=== PATIENT | female | born 1980 | race Caucasian/White ===

== ENCOUNTER 2018-04-01 21:59 | Inpatient (IN) | payer MEDICARE, OTHER ==
--- NOTE | 2018-04-01 22:25 | ED PDOC ---
Arrival/HPI - General Historian: Patient - History of Present Illness Time/Duration: > month Symptom Onset: Gradual Symptom Course: Unchanged Activities at Onset: Light Context: Home <Jeison Nguyen - Last Filed: 04/02/18 01:25> <Miller Rodriguez - Last Filed: 04/02/18 05:28> - General Time Seen by Provider: 04/01/18 22:05 - History of Present Illness Narrative History of Present Illness (Text): 04/01/18 22:24 37 year old female, no significant past medical history, psychiatric history includes schizophrenia, no known drug allergies, who presents to the Emergency department brought in by family complaining of psychotic features. Patient states she feels constantly as if people are out to get her for the past 2-3 months. Family states patient has not followed-up with her psychiatrist. Patient denies any homicidal ideation, suicidal ideation, auditory/visual hallucinations, or any other complaints. (Jeison Nguyen) Past Medical History - Provider Review Nursing Documentation Reviewed: Yes - Infectious Disease Hx of Infectious Diseases: None - Cardiac Hx Hypertension: Yes - Psychiatric Hx Anxiety: Yes Hx Depression: Yes Hx Schizophrenia: Yes Hx Substance Use: No - Surgical History Hx Section: Yes - Anesthesia Hx Anesthesia: Yes Hx Anesthesia Reactions: No <Jeison Nguyen - Last Filed: 04/02/18 01:25> Family/Social History - Physician Review Nursing Documentation Reviewed: Yes Family/Social History: Unknown Family HX Smoking Status: Current Some Days Smoker Hx Alcohol Use: Yes Hx Substance Use: No <Jeison Nguyen - Last Filed: 04/02/18 01:25> Allergies/Home Meds <Jeison Nguyen - Last Filed: 04/02/18 01:25> <Miller Rodriguez - Last Filed: 04/02/18 05:28> Allergies/Adverse Reactions: Allergies No Known Allergies Allergy (Verified 04/01/18 22:39) Home Medications: Home Meds Medication Instructions Recorded Confirmed Unobtainable 04/01/18 04/01/18 Review of Systems - Physician Review All systems were reviewed & negative as marked: Yes - Review of Systems Constitutional: absent: Fatigue, Fevers Respiratory: absent: SOB, Cough, Sputum, Wheezing Cardiovascular: absent: Chest Pain Gastrointestinal: absent: Abdominal Pain, Nausea, Vomiting Neurological: absent: Headache Psychiatric: Other (+psychotic features). absent: Depression, Suicidal Ideation <Jeison Nguyen - Last Filed: 04/02/18 01:25> Physical Exam Vital Signs Reviewed: Yes Temperature: Afebrile Blood Pressure: Normal Pulse: Regular Respiratory Rate: Normal Appearance: Positive for: Well-Appearing, Non-Toxic, Comfortable Pain Distress: None Mental Status: Positive for: Alert and Oriented X 3 - Systems Exam Head: Present: Atraumatic, Normocephalic Pupils: Present: PERRL Extroacular Muscles: Present: EOMI Conjunctiva: Present: Normal Mouth: Present: Moist Mucous Membranes Neck: Present: Normal Range of Motion Respiratory/Chest: Present: Clear to Auscultation, Good Air Exchange. No: Respiratory Distress, Accessory Muscle Use Cardiovascular: Present: Regular Rate and Rhythm, Normal S1, S2. No: Murmurs Abdomen: No: Tenderness, Distention, Peritoneal Signs Back: Present: Normal Inspection Upper Extremity: Present: Normal Inspection. No: Cyanosis, Edema Lower Extremity: Present: Normal Inspection. No: Edema Neurological: Present: GCS=15, CN II-XII Intact, Speech Normal Skin: Present: Warm, Dry, Normal Color. No: Rashes Psychiatric: Present: Alert, Oriented x 3, Normal Insight, Normal Concentration <Jeison Nguyen - Last Filed: 04/02/18 01:25> Vital Signs Temp Pulse Resp BP Pulse Ox 04/02/18 04:34 98.2 F 122 H 18 144/94 H 99 04/01/18 22:33 98.1 F 87 18 131/74 97 Medical Decision Making - EKG Interpretation Interpreted by ED Physician: Yes Type: 12 lead EKG Comparison: No previous EKG avail. <Jeison Nguyen - Last Filed: 04/02/18 01:25> <Miller Rodriguez - Last Filed: 04/02/18 05:28> ED Course and Treatment: 04/01/18 22:24 Impression: 37 year old female brought in by family for psychotic features. Plan: -- EKG -- Chest X-ray -- Labs, POC -- Urinalysis, urine drug screen -- PES evaluation -- Reassess and disposition 04/01/18 23:48 -EKG: NSR @ 92 BPM, no ST elevation or depression, T wave inversion on lead III/ V3 with no cardiopulmonary complaints -Chest xray show no active disease -Labs are non-significant -UA show +UTI -UDS show no acute findings -Pt. is medically clear and stable for psychiatric evaluation at this time. 04/02/18 01:25 -Pending PES evaluation, case sign off to Dr. Rodriguez for follow up and dispo (Jeison Nguyen) 04/02/18 04:43 Pt seen and evaluated by PES screener Jia, who discussed case with psychiatrist supervisor contact and service clerks, Dr. Bianchi. Requesting [facility] screen. [facility] screeners will come in during next shift. 04/02/18 07:[address] Rose, pending [facility] PES screen and disposition. (Miller Rodriguez) - Lab Interpretations Lab Results: 04/01/18 22:45 04/01/18 22:45 Lab Results 04/01/18 22:50: Urine Opiates Screen Negative, Urine Methadone Screen Negative, Ur Barbiturates Screen Negative, Ur Phencyclidine Scrn Negative, Ur Amphetamines Screen Negative, U Benzodiazepines Scrn Negative, U Oth Cocaine Metabols Negative, U Cannabinoids Screen Negative 04/01/18 22:50: Urine Color Straw, Urine Appearance Clear, Urine pH 7.0, Ur Specific [place] <= 1.005, Urine Protein Negative, Urine Glucose (UA) Negative, Urine Ketones Negative, Urine Blood Trace-lysed H, Urine Nitrate Negative, Urine Bilirubin Negative, Urine Urobilinogen 0.2, Ur Leukocyte Esterase Moderate H, Urine RBC 0 - 2, Urine WBC 2 - 5, Ur Epithelial Cells 1 - 3, Urine Other Trichomonas 04/01/18 22:45: WBC 13.9 H D, RBC 4.04, Hgb 11.5 L, Hct 34.3 L, MCV 84.9, MCH 28.5, MCHC 33.5, RDW 17.0 H, Plt Count 452 H, MPV 9.0, Gran % 77.2 H, Lymph % ( Auto) 17.6 L, [place] % (Auto) 5.0, Eos % (Auto) 0.1 L, Baso % (Auto) 0.1, Gran # 10.72 H, Lymph # (Auto) 2.4, [place] # (Auto) 0.7 H, Eos # (Auto) 0.0, Baso # (Auto ) 0.01 04/01/18 22:45: Salicylates < 1 L, Acetaminophen < 10.0 L 04/01/18 22:45: Sodium 145, Potassium 3.7, Chloride 107, Carbon Dioxide 23, Anion Gap 19, BUN 4 L, Creatinine 0.5 L, Est GFR ( Amer) > 60, Est GFR ( Non-Af Amer) > 60, Random Glucose 117 H, Calcium 10.1, Total Bilirubin 0.2, AST 25, ALT 22, Alkaline Phosphatase 78, Total Protein 7.5, Albumin 4.4, Globulin 3.1, Albumin/Globulin Ratio 1.4 - RAD Interpretation Radiology Orders: 04/01/18 22:37 CHEST PORTABLE [RAD] Stat - EKG Interpretation EKG Interpretation (Text): 04/01/18 23:08 -EKG: NSR @ 92 BPM, no ST elevation or depression, T wave inversion on lead III/ V3 with no cardiopulmonary complaints (Jeison Nguyen) - Medication Orders Current Medication Orders: Discontinued Medications Alprazolam (Xanax) 0.5 mg PO ONCE ONE Stop: 04/02/18 04:22 Last Admin: 04/02/18 04:28 Dose: 0.5 mg Nitrofurantoin Macrocrystals (Macrobid) 100 mg PO STAT STA PRN Reason: Protocol Stop: 04/01/18 23:37 Last Admin: 04/02/18 00:04 Dose: 100 mg - PA / SECONDARY SOCIAL STUDIES TEACHER / Resident Statement RICARDO has reviewed & agrees with the documentation as recorded. - Scribe Statement The provider has reviewed the documentation as recorded by the Scribe <Jeison Nguyen - Last Filed: 04/02/18 01:25> - PA / SECONDARY SOCIAL STUDIES TEACHER / Resident Statement RICARDO has reviewed & agrees with the documentation as recorded. RICARDO has examined the patient and agrees with the treatment plan. <Miller Rodriguez - Last Filed: 04/02/18 05:28> - Scribe Statement Enid Gonzales All medical record entries made by the Scribe were at my direction and personally dictated by me. I have reviewed the chart and agree that the record accurately reflects my personal performance of the history, physical exam, medical decision making, and the department course for this patient. I have also personally directed, reviewed, and agree with the discharge instructions and disposition. (Jeison Nguyen) Disposition/Present on Arrival - Present on Arrival Any Indicators Present on Arrival: No History of DVT/PE: No History of Uncontrolled Diabetes: No Urinary Catheter: No History of Decub. Ulcer: No History Surgical Site Infection Following: None - Disposition Have Diagnosis and Disposition been Completed?: Yes Disposition Time: 23:08 <Jeison Nguyen - Last Filed: 04/02/18 01:25> - Present on Arrival Any Indicators Present on Arrival: No - Disposition Have Diagnosis and Disposition been Completed?: No Disposition Time: 07:00 <Miller Rodriguez - Last Filed: 04/02/18 05:28> - Disposition Diagnosis: UTI (urinary tract infection), Schizophrenia Patient Problems: Current Active Problems Problem Status Onset UTI (urinary tract infection) Acute Condition: STABLE Referrals: Kofi Butler, [Primary Care Provider] - Follow up with primary
[2018-04-01 22:33] VITALS: BMI 25.8
[2018-04-01 23:21] LABS: URINE BILIRUBIN NEGATIVE (NEGATIVE); URINE BLOOD TRACE-LYSED (NEGATIVE); URINE GLUCOSE (UA) NEGATIVE (NEGATIVE); URINE LEUKOCYTE ESTERASE MODERATE Leu/uL (NEGATIVE); URINE PROTEIN NEGATIVE mg/dL (<30 mg/dL); URINE UROBILINOGEN 0.2 E.U./dL (<1 E.U./dL)
[2018-04-01 23:22] LABS: BASO # 0.01 K/mm3 (0.0-2.0); BASO % 0.1 % (0.0-3.0); EOS % 0.1 % (1.5-5.0); GRAN # 10.72 (1.4-6.5); GRAN % 77.2 % (50.0-68.0); HEMOGLOBIN 11.5 g/dL (12.0-16.0); LYMPH # 2.4 (1.2-3.4); LYMPH % 17.6 % (22.0-35.0); MEAN CELL VOLUME 84.9 fl (80.0-105.0); MEAN CORPUSCULAR HEMOGLOBIN 28.5 pg (25.0-35.0); MEAN CORPUSCULAR HGB CONC 33.5 g/dl (31.0-37.0); MONO # 0.7 (0.1-0.6); RBC 4.04 10^6/uL (3.5-6.1); WHITE BLOOD COUNT 13.9 10^3/ul (4.5-11.0)
[2018-04-01 23:25] LABS: URINE APPEARANCE CLEAR (CLEAR); URINE COLOR STRAW (YELLOW)
[2018-04-01 23:30] LABS: URINE RBC 0 - 2 /hpf (0-2)
[2018-04-01 23:30] LABS: ACETAMINOPHEN < 10.0 ug/ml (10.0-20.0); SALICYLATE < 1 mg/dL (2.0-20.0)
[2018-04-01 23:33] LABS: ALB/GLOB RATIO 1.4 (1.1-1.8); ALBUMIN 4.4 g/dL (3.0-4.8); ALT/SGPT 22 U/L (7-56); AST/SGOT 25 U/L (14-36); BLOOD UREA NITROGEN 4 mg/dL (7-21); CALCIUM 10.1 mg/dL (8.4-10.5); GFR AFRICAN-AMERICAN > 60; GFR NON-AFRICAN AMERICAN > 60
[2018-04-02 00:04] LABS: BARBITURATES, UR NEGATIVE (NEGATIVE); BENZODIAZEPINES, UR NEGATIVE (NEGATIVE); OPIATES, UR NEGATIVE (NEGATIVE); PHENCYCLIDINE, UR NEGATIVE (NEGATIVE)
--- NOTE | 2018-04-02 07:10 | ED PDOC ---
Physical Exam Vital Signs Temp Pulse Resp BP Pulse Ox 04/02/18 08:52 78 18 139/87 100 04/02/18 04:34 98.2 F 122 H 18 144/94 H 99 04/01/18 22:33 98.1 F 87 18 131/74 97 Medical Decision Making ED Course and Treatment: 04/02/18 07:00 Cased signed out to me by Dr. Rodriguez. Patient is a 37 year old female, whose PMH includes schizophrenia, who was brought in by family complaining of psychotic features. Patient denies any homicidal ideation, suicidal ideation, auditory/visual hallucinations, or any other complaints. Currently pending [facility] screening. 04/02/18 09:[address] Elidia Krueger who is aware of plan and will admit patient under her care for schizophrenia. - Lab Interpretations Lab Results: 04/01/18 22:45 04/01/18 22:45 Lab Results 04/01/18 22:50: Urine Opiates Screen Negative, Urine Methadone Screen Negative, Ur Barbiturates Screen Negative, Ur Phencyclidine Scrn Negative, Ur Amphetamines Screen Negative, U Benzodiazepines Scrn Negative, U Oth Cocaine Metabols Negative, U Cannabinoids Screen Negative 04/01/18 22:50: Urine Color Straw, Urine Appearance Clear, Urine pH 7.0, Ur Specific [place] <= 1.005, Urine Protein Negative, Urine Glucose (UA) Negative, Urine Ketones Negative, Urine Blood Trace-lysed H, Urine Nitrate Negative, Urine Bilirubin Negative, Urine Urobilinogen 0.2, Ur Leukocyte Esterase Moderate H, Urine RBC 0 - 2, Urine WBC 2 - 5, Ur Epithelial Cells 1 - 3, Urine Other Trichomonas 04/01/18 22:45: WBC 13.9 H D, RBC 4.04, Hgb 11.5 L, Hct 34.3 L, MCV 84.9, MCH 28.5, MCHC 33.5, RDW 17.0 H, Plt Count 452 H, MPV 9.0, Gran % 77.2 H, Lymph % ( Auto) 17.6 L, [place] % (Auto) 5.0, Eos % (Auto) 0.1 L, Baso % (Auto) 0.1, Gran # 10.72 H, Lymph # (Auto) 2.4, [place] # (Auto) 0.7 H, Eos # (Auto) 0.0, Baso # (Auto ) 0.01 04/01/18 22:45: Salicylates < 1 L, Acetaminophen < 10.0 L 04/01/18 22:45: Sodium 145, Potassium 3.7, Chloride 107, Carbon Dioxide 23, Anion Gap 19, BUN 4 L, Creatinine 0.5 L, Est GFR ( Amer) > 60, Est GFR ( Non-Af Amer) > 60, Random Glucose 117 H, Calcium 10.1, Total Bilirubin 0.2, AST 25, ALT 22, Alkaline Phosphatase 78, Total Protein 7.5, Albumin 4.4, Globulin 3.1, Albumin/Globulin Ratio 1.4 - RAD Interpretation Radiology Orders: 04/01/18 22:37 CHEST PORTABLE [RAD] Stat - Medication Orders Current Medication Orders: Discontinued Medications Alprazolam (Xanax) 0.5 mg PO ONCE ONE Stop: 04/02/18 04:22 Last Admin: 04/02/18 04:28 Dose: 0.5 mg Nitrofurantoin Macrocrystals (Macrobid) 100 mg PO STAT STA PRN Reason: Protocol Stop: 04/01/18 23:37 Last Admin: 04/02/18 00:04 Dose: 100 mg - Scribe Statement The provider has reviewed the documentation as recorded by the Tanya Keith Provider Scribe Attestation: All medical record entries made by the Dariaibmiguel were at my direction and personally dictated by me. I have reviewed the chart and agree that the record accurately reflects my personal performance of the history, physical exam, medical decision making, and the department course for this patient. I have also personally directed, reviewed, and agree with the discharge instructions and disposition. Disposition/Present on Arrival - Present on Arrival Any Indicators Present on Arrival: No History of DVT/PE: No History of Uncontrolled Diabetes: No Urinary Catheter: No History of Decub. Ulcer: No History Surgical Site Infection Following: None - Disposition Have Diagnosis and Disposition been Completed?: Yes Diagnosis: UTI (urinary tract infection), Schizophrenia Disposition: HOSPITALIZED Disposition Time: 08:45 Patient Plan: Admission Patient Problems: Current Active Problems Problem Status Onset Schizophrenia Acute UTI (urinary tract infection) Acute Condition: STABLE
[2018-04-02 08:53] VITALS: O2SAT 100
--- NOTE | 2018-04-02 08:53 | RAD ---
HISTORY: medical clearance COMPARISON: 11/02/2015 FINDINGS: LUNGS: No active pulmonary disease. PLEURA: No significant pleural effusion identified, no pneumothorax apparent. CARDIOVASCULAR: Normal. OSSEOUS STRUCTURES: No significant abnormalities. VISUALIZED UPPER ABDOMEN: Normal. OTHER FINDINGS: None. IMPRESSION: No active disease.
[2018-04-02] MEDS: Divalproex 250 mg DR (BID formulation) PO SCH ×2 (11:19→21:57)
[2018-04-02 12:04] LABS: GLUCOSE,FASTING 79 mg/dL (65-110); HDL CHOLESTEROL 35 mg/dL (29-60)
[2018-04-02 12:15] LABS: LDL CHOLESTEROL 138 mg/dL (0-129)
[2018-04-02 12:22] LABS: FREE T4 0.97 ng/dL (0.78-2.19)
--- NOTE | 2018-04-02 14:06 | CARD ---
APPROVED REPORT EKG Measurement Heart [id number] <Conclusion> Normal sinus rhythm Nonspecific T wave abnormality Abnormal ECG
--- NOTE | 2018-04-02 16:46 | PCM.BM ---
<Bryan Meeks - Last Filed: 04/02/18 16:44> Treatment Plan Problems - Problems identified on initial assessmt Altered Thought Process Date Initiated: 04/02/18 Time Initiated: 16:44 Assessment reference: NA Status: Active Priority: 1 Ineffective Coping Date Initiated: 04/02/18 Time Initiated: 16:45 Assessment reference: NA Status: Active Priority: 2 Auditory Hallucinations Date Initiated: 04/02/18 Time Initiated: 16:45 Assessment reference: NA Status: Active Priority: 3 Visual Hallucinations Date Initiated: 04/02/18 Time Initiated: 16:45 Assessment reference: NA Status: Active Priority: 4 Depressive Symptoms Date Initiated: 04/02/18 Time Initiated: 16:45 Assessment reference: NA Status: Active Priority: 5 Altered Sleep Patterns Date Initiated: 04/02/18 Time Initiated: 16:45 Assessment reference: NA Status: Active Priority: 6 - Milieu Protocol Maintain good personal hygiene: daily Encourage regular showers, daily Remind patient to perform daily oral care, daily Assist patient to perform ADL's Maintain personal safety: every shift Educate patient to report safety concerns to staff, every shift Monitor environment for contraband/sharps Medication safety: Monitor for expected outcome, potential side effects: every shift, Assess barriers to learning: every shift, Assess readiness for medication education: every shift Discharge/Continuing Care - Education Needs Education Needs: Patient Medication, Patient Diagnosis/Disease Process, Patient Coping Skills, Patient Aftercare Safety Plan - Discharge Discharge Criteria: Tolerates medication w/o severe side effects, Free of paranoid thoughts, Normal sleep pattern, Ability to care for self, Reduction of target symptoms Discharge to:: Home <Elidia Krueger - Last Filed: 04/03/18 14:22> - Diagnosis (1) Schizophrenia Status: Acute Interventions: 04/03/18 14:22 Psychoeducation/psychotherapy Psychopharmacology/adjustment of medications as needed/ monitoring possible side effects Evaluate pt on daily basis Compliance with medications and follow up appointments Long acting medication if pt is noncompliant with pill form Suicide and homicide risk assessment and prevention, coping strategies, safety plan Relapse prevention Reduction of symptoms Improve functional status Possible assertive community treatment Cognitive behavioral therapy Family involvement Possible social skill training as outpatient <Joleen Sherman - Last Filed: 04/04/18 14:56> Family Contact Family involvement: Family/SO is involved Family contact: Patient agrees to contact Family contact name: Shree Gutierrez(brother) [phone] Family contacted how many times per week?: 2 - Outside Agency [facility] Care involvment: Information-sharing Agency contact name: [facility] Agency contact number: [phone]
[2018-04-02] MEDS: Cefpodoxime (Vantin) 200 mg Tab PO SCH (17:43)
--- NOTE | 2018-04-02 19:35 | CON ---
DATE: HISTORY OF PRESENT ILLNESS: Shortly, the patient is 37-year-old female, long and debilitating history of schizophrenia. The patient was brought into the hospital by her family for evaluation of bizarre, disoriented, and disorganized behavior. The patient was not taking her psychotropic medications for past 2 months. The patient was deteriorating in a way that she will be feeling that people are after her to get her. The patient was stuck in the house and she was not leaving the house. The patient also reported that she had voices talking to her in her head. Psych consult was called for evaluation of this described behavior. Overnight, the patient refused to stay in the hospital that is why [facility] screening process was initiated. This song writer was involved into the patient's care because of morning rounds and consultation requested by medical team. The patient was seen and examined today. The patient presented to be psychotic, irritable. The patient said that she constantly hear voices in her head telling her that she should not take any medication. The patient also reported that she is afraid that they will get hurt her. The patient reported that she was not sleeping and she was not eating very well. The patient gave permission to this song writer to speak to her brother, Shree who is next to her and also Julia, her sister over the phone. Shree's phone number is [phone] and Julia's phone number is [phone]. Shree reported for the past 2-1/2 months, the patient was not taking any medication. Nobody notes what medication she needs to be on. The patient was not sleeping, acting bizarre, talking nonstop to herself, and feeling scared. Over the phone, Julia reported that she does not remember the name of the medication, but while the patient is taking medication, she is much calmer and she is doing well. As per family, the patient is feeling her medication in [facility], that phone number. As per the patient, most likely she was taking Risperdal and Xanax, and she said that she did not like how it makes her feel, but at the same time she is willing to take medication to start feeling better. Labs reviewed. PHYSICAL EXAMINATION: VITAL SIGNS: Reviewed. Temperature 98.2, pulse is 78, blood pressure 139/87, respirations 18, oxygen saturation 100%. MEDICATIONS: The patient is on Xanax and Macrobid for urinary tract infection. LABORATORY DATA: WBC 13.9. Chemistry reviewed. Urinalysis: Leukocyte esterase positive and negative for any substances. MENTAL STATUS EXAM: The patient is obviously irritable, angry. Poor eye contact. The patient is talking to herself. The patient obviously appears to be paranoid and disorganized. Mood described on the edge. Affect is constricted, angry. Thought process: Circumstantial and tangential. Thought content: The patient obviously psychotic, responding to internal stimuli, and restless. Insight and judgment seem to be fair. The patient has capacity to sign herself in. The patient wants to get better. Impulses are well controlled. IMPRESSION: Per history, schizophrenia, rule out schizoaffective disorder. PLAN: The patient was willing to sign in order to start feeling better. The patient will be started Risperdal, Seroquel. Second generation will be treatment of choice for her. We will call the [facility]. Family is involved, Shree and Julia. The patient is willing to sign consent. We will continue treatment. Medical team will be called for urinary tract infection. Thank you very much for letting me participate in the care of your patient. Elidia Krueger MD
[2018-04-03] MEDS: Cefpodoxime (Vantin) 200 mg Tab PO SCH ×2 (05:12→17:03)
--- NOTE | 2018-04-03 05:59 | PN ---
DATE: 04/02/2018 Medical note on patient in Behavioral Care Unit at [facility] in [place]. SUBJECTIVE: The patient is admitted to the [facility] under doctor who is in charge of Behavioral Care. The patient's evaluation in the emergency room, the patient had no acute medical complaints. The patient has symptoms of schizophrenia. The patient has had past history of same and has been treated for it in the past. The patient's medical history is insignificant, but she has had section. She has 6 children and she does not have any other medical problems excepting that she has had gastritis and the patient has had vaginitis. The patient also has history of mild hypertension according to treatment profile. Currently on talking to her, she is pleasant, but not giving answers appropriately to questions. The patient has some involuntary movements of her head and neck, but not arms and she does have these, she hears voices and they seem to disturb her. PHYSICAL EXAMINATION GENERAL: The patient is ambulant and examined her with the assistance of the patient's critical care cns. VITAL SIGNS: The pulse is 87, blood pressure 131/74, respirations 18, O2 saturation is 97% on room air, temperature 98.1. HEENT: The patient's head is normocephalic. There are no evidence of any masses or injuries. NECK: Thyroid is not enlarged. Carotid pulses are present. JVP is flat. LUNGS: Trachea is central. Breath sounds are vesicular. No adventitious sounds. HEART: Normal sinus rhythm. S1 and S2 present. No murmurs. ABDOMEN: Soft. Liver and spleen are not palpable. CENTRAL NERVOUS SYSTEM: The patient has no focal neurological deficits. She moves all four limbs and speech and hearing within normal limits. LABORATORY DATA: The patient does have urinary tract infection based on the urinary examination. The patient also has Trichomonas in the urine. The patient's blood work done in the hospital, the white count is 13,900, hemoglobin 11.5, differentially shift to the left accounts to infection. The patient's chemistry: The patient's sodium is 145, creatinine 0.5 and BUN is 4. The patient's blood sugar is 117, cholesterol is 214. The patient's thyroid function study is within normal range. VDRL and RPR has been ordered for the patient. She will also have a test for gonorrhea. We will have to treat the patient's urinary tract infection and also vaginal Trichomonas infection. We will request POLICY SPECIALIST consultation and we will follow up regarding the blood pressure, the vital signs. Right now, the blood pressure is under control. MEDICATIONS: The patient takes Ambien 5 mg at night to sleep, Ativan 2 mg every 6 hours p.r.n. for agitation. The patient is on Ativan 0.5 mg p.o. four times a day. The patient is also on Claritin 10 mg daily for allergy. The patient is on Depakote 250 mg twice a day and the patient is on Geodon 20 mg every 6 hours for agitation. The patient is on a heart-healthy diet. We will follow up for her medical condition and treat the patient for the vaginal and urinary tract infection. Verito Covarrubias MD
[2018-04-03 07:53] LABS: IRON 67 ug/dL (45-180)
[2018-04-03 08:04] LABS: % IRON SATURATION 18 % (20-55); TOTAL IRON BINDING CAPACITY 363 ug/dL (265-497)
[2018-04-03] MEDS: Divalproex 250 mg DR (BID formulation) PO SCH ×2 (09:11→21:08)
[2018-04-03] MEDS: OLANZapine 5 mg Disintegrating Tab PO SCH ×2 (09:13→17:04)
--- NOTE | 2018-04-03 13:11 | PN ---
DATE: 04/03/2018 SUBJECTIVE: The patient is in [facility] in [facility]. The patient was admitted with schizophrenia. She has auditory hallucination and she also has history of some abdominal discomfort consistent with gastritis. She has history of urinary tract infection and possibly vaginitis related to Trichomonas. Seen this morning, she is awake and alert. She is paranoid and complaining of various people saying things to her. She wants to go home, however. PHYSICAL EXAMINATION: VITAL SIGNS: This morning, the pulse is 83, blood pressure 130/80, the patient's respirations are 20, O2 saturation is 100% on room air. HEENT: The patient's head is normocephalic. NECK: The thyroid is not enlarged. LUNGS: Clear. HEART: Normal sinus rhythm. ABDOMEN: Soft. Liver and spleen not palpable. The patient has no localizing signs in the abdomen. BEAN DUMPER: She has no neurological deficits noted. Her symptoms are totally mental hallucination, illusion and auditory hallucination. MEDICATIONS: The patient is on Ambien for sleep. The patient is on Ativan. The patient is on Depakote for antibiotics. She is on metronidazole, Flagyl 500 mg b.i.d. for five days. The patient will be on Vantin 200 mg b.i.d. for five days. These medications are for urinary tract infection and vaginitis. We will repeat her test in three days. We will follow up. Verito Covarrubias MD
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
[2018-04-04] MEDS: Cefpodoxime (Vantin) 200 mg Tab PO SCH ×2 (06:16→18:40)
[2018-04-04] MEDS: Divalproex 250 mg DR (BID formulation) PO SCH (08:08)
[2018-04-04] MEDS: OLANZapine 5 mg Disintegrating Tab PO SCH ×3 (08:09→18:40)
[2018-04-04] MEDS ORDERED: DiphenhydrAMINE 50 mg/ml Inj IM PRN (14:02)
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
[2018-04-04] MEDS: Divalproex 500 mg DR(BID formulation) PO SCH (22:03)
[2018-04-05] MEDS: Cefpodoxime (Vantin) 200 mg Tab PO SCH ×2 (05:02→17:26)
[2018-04-05] MEDS: Divalproex 500 mg DR(BID formulation) PO SCH ×2 (09:13→22:05)
[2018-04-05] MEDS: OLANZapine 5 mg Disintegrating Tab PO SCH ×3 (09:15→17:27)
[2018-04-05 09:30] LABS: BASO # 0.02 K/mm3 (0.0-2.0); BASO % 0.2 % (0.0-3.0); EOS # 0.1 (0.0-0.7); EOS % 1.1 % (1.5-5.0); GRAN # 8.23 (1.4-6.5); GRAN % 73.7 % (50.0-68.0); HEMOGLOBIN 11.6 g/dL (12.0-16.0); LYMPH # 2.1 (1.2-3.4); LYMPH % 18.6 % (22.0-35.0); MEAN CELL VOLUME 85.7 fl (80.0-105.0); MEAN CORPUSCULAR HEMOGLOBIN 28.2 pg (25.0-35.0); MEAN CORPUSCULAR HGB CONC 32.9 g/dl (31.0-37.0); MEAN PLATELET VOLUME 8.9 fl (7.0-11.0); MONO # 0.7 (0.1-0.6); MONO % 6.4 % (1.0-6.0); RBC 4.12 10^6/uL (3.5-6.1); RED CELL DISTRIBUTION WIDTH 16.7 % (11.5-14.5); WHITE BLOOD COUNT 11.2 10^3/ul (4.5-11.0)
[2018-04-05 09:38] LABS: ALB/GLOB RATIO 1.5 (1.1-1.8); ALBUMIN 4.4 g/dL (3.0-4.8); ALT/SGPT 28 U/L (7-56); AST/SGOT 15 U/L (14-36); BLOOD UREA NITROGEN 10 mg/dL (7-21); CALCIUM 9.6 mg/dL (8.4-10.5); GFR AFRICAN-AMERICAN > 60; GFR NON-AFRICAN AMERICAN > 60
--- NOTE | 2018-04-05 12:53 | PN ---
DATE: 04/05/2018 SUBJECTIVE: The patient is in Behavioral Care Unit, room 519, bed 1. The patient was admitted with schizophrenia. The patient has vaginitis, urinary tract infection. The patient is improving, but the mental status seem to be still unstable. She has auditory hallucination associated with schizophrenia diagnosis is established. PHYSICAL EXAMINATION: VITAL SIGNS: This morning, the patient's pulse is 97, blood pressure 126/85, respirations 20, O2 saturation is 99% on room air. The patient's temperature is 98.4. HEENT: The head is normocephalic on examination. NECK: The thyroid is not enlarged. Carotid pulses are present. JVP flat. LUNGS: Trachea is central. Breath sounds are vesicular. No adventitious sounds. HEART: Normal sinus rhythm. S1, S2 present. No murmurs. NEONATAL INTENSIVE CARE NURSE: The patient had no focal neurological deficits. MEDICATIONS: The patient's medication consist of Ambien, Ativan. The patient is on Depakote. The patient is also getting Zyprexa at this time. She is on penicillin, Vantin 200 mg b.i.d. and metronidazole 500 mg b.i.d. These things continued for urinary tract infection and vaginitis secondary to trichomonas. The patient's blood pressure medication is amlodipine 5 mg daily. The patient's condition medically is improving, stable. We will continue current management and follow up with Behavioral Care Unit. Verito Covarrubias MD
--- NOTE | 2018-04-05 13:22 | PCM.PYCHPN ---
Psychiatric Progress Note - Psychiatric Progress Note Patient seen today, length of contact: 30min Patient Chief Complaint: "tell them, tell them I did not kill anyone, tell, oh shut up, shut up" (pt was actively hallucinating, responding to internal stimuli". Problems Identified/Issues Discussed: Suicide/ homicide prevention, past psychiatric h/o, current psychiatric symptoms , medical problems, risk/benefits and alternatives of medications, medications compliance, coping strategies, substance abuse h/o, relapse prevention, importance of follow up with psychiatrist and therapist, discharge plan. Medical Problems: UTI Diagnostic Results: 04/01/18 22:45 04/01/18 22:45 Lab Results 04/03/18 07:30: Iron 67, TIBC 363, % Saturation 18 L 04/02/18 11:40: RPR Nonreactive 04/02/18 11:40: Free T4 0.97, TSH 3rd Generation 1.14 04/02/18 11:40: Fasting Glucose 79, Triglycerides 140, Cholesterol 214 H, LDL Cholesterol Direct 138 H, HDL Cholesterol 35 04/01/18 22:50: Urine Opiates Screen Negative, Urine Methadone Screen Negative, Ur Barbiturates Screen Negative, Ur Phencyclidine Scrn Negative, Ur Amphetamines Screen Negative, U Benzodiazepines Scrn Negative, U Oth Cocaine Metabols Negative, U Cannabinoids Screen Negative 04/01/18 22:50: Urine Color Straw, Urine Appearance Clear, Urine pH 7.0, Ur Specific [place] <= 1.005, Urine Protein Negative, Urine Glucose (UA) Negative, Urine Ketones Negative, Urine Blood Trace-lysed H, Urine Nitrate Negative, Urine Bilirubin Negative, Urine Urobilinogen 0.2, Ur Leukocyte Esterase Moderate H, Urine RBC 0 - 2, Urine WBC 2 - 5, Ur Epithelial Cells 1 - 3, Urine Other Trichomonas 04/01/18 22:45: WBC 13.9 H D, RBC 4.04, Hgb 11.5 L, Hct 34.3 L, MCV 84.9, MCH 28.5, MCHC 33.5, RDW 17.0 H, Plt Count 452 H, MPV 9.0, Gran % 77.2 H, Lymph % ( Auto) 17.6 L, [place] % (Auto) 5.0, Eos % (Auto) 0.1 L, Baso % (Auto) 0.1, Gran # 10.72 H, Lymph # (Auto) 2.4, [place] # (Auto) 0.7 H, Eos # (Auto) 0.0, Baso # (Auto ) 0.01 04/01/18 22:45: Salicylates < 1 L, Acetaminophen < 10.0 L 04/01/18 22:45: Sodium 145, Potassium 3.7, Chloride 107, Carbon Dioxide 23, Anion Gap 19, BUN 4 L, Creatinine 0.5 L, Est GFR ( Amer) > 60, Est GFR ( Non-Af Amer) > 60, Random Glucose 117 H, Calcium 10.1, Total Bilirubin 0.2, AST 25, ALT 22, Alkaline Phosphatase 78, Total Protein 7.5, Albumin 4.4, Globulin 3.1, Albumin/Globulin Ratio 1.4 Vital Signs Temp Pulse Resp BP Pulse Ox 04/04/18 10:45 97.3 F L 04/04/18 09:49 98.2 F 95 H 17 130/78 04/04/18 08:07 95 H 130/78 04/03/18 15:00 96 H 130/82 04/03/18 06:25 97.8 F 83 20 129/79 04/02/18 16:00 106 H 142/103 H 04/02/18 10:33 16 04/02/18 09:35 98.1 F 04/02/18 08:52 78 18 139/87 100 04/02/18 04:34 98.2 F 122 H 18 144/94 H 99 04/01/18 22:33 98.1 F 87 18 131/74 97 Laboratory Results - last 24 hr 04/05/18 04/05/18 09:20 09:20 WBC 11.2 H RBC 4.12 Hgb 11.6 L Hct 35.3 L MCV 85.7 MCH 28.2 MCHC 32.9 RDW 16.7 H Plt Count 356 MPV 8.9 Gran % 73.7 H Lymph % (Auto) 18.6 L Ector % (Auto) 6.4 H Eos % (Auto) 1.1 L Baso % (Auto) 0.2 Gran # 8.23 H Lymph # (Auto) 2.1 Ector # (Auto) 0.7 H Eos # (Auto) 0.1 Baso # (Auto) 0.02 Sodium 142 Potassium 4.0 Chloride 101 Carbon Dioxide 26 Anion Gap 18 BUN 10 Creatinine 0.6 L Est GFR ( Amer) > 60 Est GFR (Non-Af Amer) > 60 Random Glucose 144 H Calcium 9.6 Total Bilirubin 0.3 AST 15 ALT 28 Alkaline Phosphatase 68 Total Protein 7.3 Albumin 4.4 Globulin 2.9 Albumin/Globulin Ratio 1.5 DSM 5 Symptoms Update: shortly pt is 37yo female, long h/o mental illness, h/o noncompliance with meds, lives with her family, was brought in by her brother for evaluation of bizarre, paranoid symptoms, pt was not sleeping for the past two months, pt was feeling that people after her, watching her, pt also has feeling that something in her body what she cannot take out, pt also had visual hallucinations, pt also had mood symptoms, insomnia for the past two months, pt was not able to function, pt also was not compliant with medications. pt does not have psychiatrist in the community, needs higher level of care. pt is currently on 1:1 observation for disorganized thoughts and behavior, pt was inducing vomiting due to her delusions that "some foreign balls in my body", pt also was trying to stuff a toilet paper in her mouth, staff intervene immediately, pt was started on 1:1. as per report pt had difficult time with sleep, pt is not able to relax and keep walking. 04/04/18: pt presented to be disorganized, responding to internal stimuli, was keep repeating that she did not kill anyone, then pt was saying "oh shut up, stop talking to me" (nobody was talking to the pt, pt is responding to internal stimuli), pt the started to roll her eyes and make some shaky movements, but pt was not seizing. did not pass urine, was not confused after. 04/05/18: pt still is not doing well, but some positive changes pt is little calmer. pt still disorganized, no option to have a meaningful conversation, pt is talking loudly to herself, saying "I did not kill anyone, stop saying that...", obviously responding to internal stimuli, actively hallucinating. pt still on 1: 1 for self inducing vomiting "foreign bodies in my stomach". patient was agitated overnight and require Haldol, Benadryl, Ativan PO. as per staff, patient is disorganized, psychotic, requires frequent when necessary medications. patient tolerates medications well, no side effects observed or reported, aims 0 , no EPS. patient submitted 48 hour notice, requesting discharge, patient acutely psychotic, needs further evaluation and stabilization, will call [facility] for involuntary commitment assessment. Impression: schizophrenia Medication Change: Yes (zyprxa increased, ambien started, PRN changed, ativan increased) Medical Record Reviewed: Yes Consults ordered or reviewed: medical consult for UTI and trichomonas + Mental Status Examination - Cognitive Function Orientation: Person, Place, Situation Memory: Impaired Attention: Poor Concentration: Poor Association: Loose Fund of Knowledge: Poor - Mood Mood: Depressed, Anxious - Affect Affect: Constricted, Other (weird looking) - Formal Thought Process Formal Thought Process: Hallucinations, Delusions, Paranoia, Loosening of associations - Suicidal Ideation Suicidal Ideation: No - Homicidal Ideation Homicidal Ideation: No Goal/Treatment Plan - Goal/Treatment Plan Need for Continued Stay: Remain at risks for inpatient hospitalization, Severe depression anxiety, Discharge may exacerbated symptoms, Severe functional impairment Progress Toward Problem(s) and Goals/Treatment Plan: Milieu/structure/supportive therapy Medical consult appreciated for UTI SW consultation for discharge plan and social issues Med management zyprexa increased to 5mg po tid for psychosis haldol/benadryl/ativan PRN depakote 500mg po bid for mood stabilization ambien 10mg po hs ativan 2mg po bid for mood stabilization and anxiety patient submitted 48 hour notice, will initiated [facility] screening process, pt refused to rescind 48hr notice Family involvement Follow up on labs Will monitor closely Pt was educated about risk/benefits and alternatives of medications, coping strategies (safety plan, suicide prevention), relapse prevention, importance of follow up with psychiatrist and therapist, stay away from drugs/alcohol/smoking Estimated Date of D/C: 04/11/18
--- NOTE | 2018-04-05 21:57 | CP.PCM.PN ---
Subjective - Date & Time of Evaluation Date of Evaluation: 04/05/18 Time of Evaluation: 21:52 - Subjective Subjective: Patient was seen for her complaint of nausea and vomiting. She is symptoms free for last 30 minutes. Vomited once earlier.[place] nauseous earlier. States that she had some burning in lower sternal area earlier. Denies chest pain, sob, sweating, palpitation, headache. Medical record was reviewed. Gives history of GERD. This 37 year old woman was admitted for Schizophrenia,UTI. Has PMH of Schizophrenia. Objective - Vital Signs/Intake and Output Vital Signs (last 24 hours): Temp Pulse Resp BP Pulse Ox 99.1 F 102 H 20 110/69 100 04/05/18 21:39 04/05/18 21:39 04/05/18 07:42 04/05/18 21:39 04/02/18 08:52 - Medications Medications: Current Medications Amlodipine Besylate (Norvasc) 5 mg PO DAILY [facility] Last Admin: 04/05/18 09:11 Dose: 5 mg Diphenhydramine HCl (Benadryl) 50 mg PO Q6H PRN PRN Reason: agitation and psychosis Diphenhydramine HCl (Benadryl) 50 mg IM Q6H PRN PRN Reason: Agitation/psychosis Divalproex Sodium (Depakote Dr(*Bid*)) 500 mg PO 0800,2200 [facility] PRN Reason: Protocol Last Admin: 04/05/18 09:13 Dose: 500 mg Haloperidol (Haldol) 5 mg PO Q6H PRN; Protocol PRN Reason: psychosis, agitaiton Last Admin: 04/05/18 05:57 Dose: 5 mg Haloperidol Lactate (Haldol) 5 mg IM Q6H PRN; Protocol PRN Reason: psychosis and agitaiton Ibuprofen (Motrin Tab) 600 mg PO Q6H PRN PRN Reason: pain 6/10,fever >=100 Last Admin: 04/04/18 10:45 Dose: 600 mg Loratadine (Claritin) 10 mg PO DAILY [facility] Last Admin: 04/05/18 09:14 Dose: 10 mg Lorazepam (Ativan) 2 mg IM Q6H PRN; Protocol PRN Reason: Agitation Last Admin: 04/03/18 15:58 Dose: 2 mg Lorazepam (Ativan) 2 mg PO Q6H PRN; Protocol PRN Reason: Agitation Last Admin: 04/05/18 05:57 Dose: 2 mg Lorazepam (Ativan) 2 mg PO BID [facility] PRN Reason: Protocol Last Admin: 04/05/18 17:26 Dose: 2 mg Metronidazole (Flagyl) 500 mg PO BID [facility] PRN Reason: Protocol Stop: 04/09/18 23:59 Last Admin: 04/05/18 17:26 Dose: 500 mg Olanzapine (Zyprexa Zydis) 10 mg PO BID [facility]A PRN Reason: Protocol Last Admin: 04/05/18 17:27 Dose: 10 mg Zolpidem Tartrate (Ambien) 10 mg PO HS [facility] PRN Reason: Protocol Last Admin: 04/04/18 22:04 Dose: 10 mg - Labs Labs: 04/05/18 09:20 04/05/18 09:20 Last Vital Signs 3 Temp 99.1 F 04/05/18 21:39 Pulse 102 H 04/05/18 21:39 Resp 20 04/05/18 07:42 BP 110/69 04/05/18 21:39 Pulse Ox 100 04/02/18 08:52 - Constitutional Appears: Well, No Acute Distress - Head Exam Head Exam: ATRAUMATIC, NORMAL INSPECTION, NORMOCEPHALIC - Eye Exam Eye Exam: Normal appearance - ENT Exam ENT Exam: Normal External Ear Exam - Neck Exam Neck Exam: Normal Inspection - Respiratory Exam Respiratory Exam: NORMAL BREATHING PATTERN - Cardiovascular Exam Cardiovascular Exam: absent: JVD - GI/Abdominal Exam GI & Abdominal Exam: absent: Distended - Rectal Exam Rectal Exam: Deferred - Exam Additional comments: Deferred. - Extremities Exam Extremities Exam: Normal Inspection - Back Exam Back Exam: NORMAL INSPECTION - Neurological Exam Neurological Exam: Alert, Awake, Oriented x3 - Psychiatric Exam Psychiatric exam: Normal Affect, Normal Mood - Skin Skin Exam: Normal Color Assessment and Plan - Assessment and Plan (Free Text) Assessment: Nausea/Vomiting-resolved. Gastritis? History of GERD. Schizophrenia. UTI. Leukocytosis. Plan: Protonix 40 mg PO x 1. Will give mylanta when she gets motrin. Continue present management.
[2018-04-05] MEDS ORDERED: Pantoprazole 40 mg EC Tab PO STA (22:31)
[2018-04-05] MEDS ORDERED: Alum-Mag Hydrox-Simethicone Susp (30 mL) PO PRN (22:33)
[2018-04-06 06:56] VITALS: RESP 20; TEMP 97.8
--- NOTE | 2018-04-06 09:19 | PN ---
DATE: 04/06/2018 LOCATION: The patient is in [facility], Behavioral Care Unit, room 519, bed 1. SUBJECTIVE: The patient was admitted with schizophrenia. The patient has history of urinary tract infection, vaginitis, has a history of gastritis and hypertension. The patient is seen this morning. She still has auditory hallucinations, but otherwise she is ambulating. She appears to be clinically improving. PHYSICAL EXAMINATION: VITAL SIGNS: The pulse is 82, blood pressure 116/74, respirations are 20, the patient's temperature is 97.8. LUNGS: Clear. HEART: Normal sinus rhythm. ABDOMEN: Soft. CENTRAL NERVOUS SYSTEM: No focal deficits are noted. MEDICATIONS: The patient's medication list consists of Ambien for sleep. The patient is on Ativan. The patient is on Depakote and Benadryl and the patient also gets Claritin 10 mg daily. The patient's other medications consists of metronidazole 500 mg b.i.d. and also, the patient is on penicillin; Vantin 200 mg b.i.d. for five days, probably the dose is completed. The patient is also getting Haldol p.r.n. for aggressive behavior. Her diet is heart-healthy diet. Overall prognosis is good. The patient should improve with medication. Verito Covarrubias MD
[2018-04-06] MEDS: OLANZapine 5 mg Disintegrating Tab PO SCH ×2 (09:31→15:15)
[2018-04-06] MEDS: Divalproex 500 mg DR(BID formulation) PO SCH ×2 (09:31→21:00)
[2018-04-06 16:05] VITALS: BP 113/81; PULSE 103
--- NOTE | 2018-04-06 16:26 | PCM.PYCHPN ---
Psychiatric Progress Note - Psychiatric Progress Note Patient seen today, length of contact: 25 min Patient Chief Complaint: "better, I finally got my appetite back" Problems Identified/Issues Discussed: Patient is a 37 yo female with a long history of schizophrenia, hx of noncompliance with meds who was brought in by her brother for treatment of disorganization, paranoid delusions, insomnia, and visual hallucinations. Patient has required 1:1 observation for disorganized thoughts and behaviors on the unit. On 04/03/18 patient induced vomiting and tried to stuff toilet paper in her mouth because of delusion that "some foreign balls are in my body. On patient was actively responding to internal stimuli and kept repeating that she did not kill anyone. She was heard by staff repeating "oh shut up, stop talking to me. Patient has shown minimal improvement in insight and organization on the unit. Patient put in a 48 hour letter and is currently awaiting an involuntary bed at [facility]. She continues to demonstrate periods of agitation, active hallucinations and delusions necessitating standing and prn medications. I met with patient in the hallway this morning and she presented as defensive and dysphoric but was tenuously in control during my questioning. Patient reports that she is feeling better and "finally got my appetite back". Indicates that she slept very well and states "the medications they are giving me are very good". Patient denies any new discomfort or pain. She denies hallucinations and wasn't observed to be responding to internal stimuli. Nonetheless she was guarded, evasive, superficial and preoccupied. As noted above, patient has a history of self-induced vomiting on the unit. She has not demonstrated this behavior thus far today. She has difficulty being around other patients due to her paranoia and remains unpredictable. Will continue to monitor. Diagnostic Results: Schizophrenia Medication Change: Yes (zyprxa increased, ambien started, PRN changed, ativan increased) Medical Record Reviewed: Yes Mental Status Examination - Cognitive Function Orientation: Person, Place, Situation Memory: Impaired Attention: Poor Concentration: Poor Association: Loose Fund of Knowledge: Poor - Mood Mood: Depressed (better), Anxious - Affect Affect: Constricted, Other ( labile, oddly related) - Formal Thought Process Formal Thought Process: Hallucinations, Delusions, Paranoia, Loosening of associations - Suicidal Ideation Suicidal Ideation: No - Homicidal Ideation Homicidal Ideation: No Goal/Treatment Plan - Goal/Treatment Plan Need for Continued Stay: Remain at risks for inpatient hospitalization, Severe depression anxiety, Discharge may exacerbated symptoms, Severe functional impairment Progress Toward Problem(s) and Goals/Treatment Plan: * c/w current tx and plan * Appreciate Dr. Covarrubias's f/u today~no new recommendations * No new labs today * Vitals reviewed and noted below: Selected Entries 04/06/18 06:55 Temperature 97.8 F Pulse Rate 82 Respiratory 20 Rate Blood Pressure 116/77 * NOTE: PATIENT HAS BEEN ACCEPTED FOR INVOLUNTARY COMMITMENT TO [facility]. SHE IS CURRENTLY AWAITING OPEN BED Estimated Date of D/C: 04/11/18
--- NOTE | 2018-04-08 11:37 | PCM.PYCHDC ---
Mental Status Examination - Mental Status Examination Orientation: Person, Place Memory: Impaired Mood: Anxious Affect: Constricted Attention: Poor Concentration: Poor Association: Loose Fund of Knowledge: Poor Formal Thought Process: Hallucinations, Delusions, Paranoia, Loosening of associations Description of patient's judgement and insight: Patient has poor insight and judgement Suicidal Ideation: No Current Homicidal Ideation?: No Discharge Summary - Discharge Note Reason for Hospitalization: Patient is a 37 yo female with a long history of schizophrenia, hx of noncompliance with meds who was brought in by her brother for treatment of disorganization, paranoid delusions, insomnia, and visual hallucinations. Psychiatric History (includes Medical, Family, Personal Hx): see HPI Laboratory Data: Laboratory Tests 04/01/18 04/01/18 04/01/18 22:45 22:45 22:45 WBC 13.9 H D RBC 4.04 Hgb 11.5 L Hct 34.3 L MCV 84.9 MCH 28.5 MCHC 33.5 RDW 17.0 H Plt Count 452 H MPV 9.0 Gran % 77.2 H Lymph % (Auto) 17.6 L [place] % (Auto) 5.0 Eos % (Auto) 0.1 L Baso % (Auto) 0.1 Gran # 10.72 H Lymph # (Auto) 2.4 [place] # (Auto) 0.7 H Eos # (Auto) 0.0 Baso # (Auto) 0.01 Sodium 145 Potassium 3.7 Chloride 107 Carbon Dioxide 23 Anion Gap 19 BUN 4 L Creatinine 0.5 L Est GFR ( Amer) > 60 Est GFR (Non-Af Amer) > 60 Random Glucose 117 H Fasting Glucose Calcium 10.1 Iron TIBC % Saturation Total Bilirubin 0.2 AST 25 ALT 22 Alkaline Phosphatase 78 Troponin I Total Protein 7.5 Albumin 4.4 Globulin 3.1 Albumin/Globulin Ratio 1.4 Triglycerides Cholesterol LDL Cholesterol Direct HDL Cholesterol Free T4 TSH 3rd Generation Urine Color Urine Appearance Urine pH Ur Specific [place] Urine Protein Urine Glucose (UA) Urine Ketones Urine Blood Urine Nitrate Urine Bilirubin Urine Urobilinogen Ur Leukocyte Esterase Urine RBC Urine WBC Ur Epithelial Cells Urine Other Urine HCG, Qual Salicylates < 1 L Urine Opiates Screen Urine Methadone Screen Acetaminophen < 10.0 L Ur Barbiturates Screen Ur Phencyclidine Scrn Ur Amphetamines Screen U Benzodiazepines Scrn U Oth Cocaine Metabols U Cannabinoids Screen Alcohol, Quantitative RPR 04/01/18 04/01/18 04/02/18 22:50 22:50 11:40 WBC RBC Hgb Hct MCV MCH MCHC RDW Plt Count MPV Gran % Lymph % (Auto) [place] % (Auto) Eos % (Auto) Baso % (Auto) Gran # Lymph # (Auto) [place] # (Auto) Eos # (Auto) Baso # (Auto) Sodium Potassium Chloride Carbon Dioxide Anion Gap BUN Creatinine Est GFR ( Amer) Est GFR (Non-Af Amer) Random Glucose Fasting Glucose 79 Calcium Iron TIBC % Saturation Total Bilirubin AST ALT Alkaline Phosphatase Troponin I Total Protein Albumin Globulin Albumin/Globulin Ratio Triglycerides 140 Cholesterol 214 H LDL Cholesterol Direct 138 H HDL Cholesterol 35 Free T4 TSH 3rd Generation Urine Color Straw Urine Appearance Clear Urine pH 7.0 Ur Specific [place] <= 1.005 Urine Protein Negative Urine Glucose (UA) Negative Urine Ketones Negative Urine Blood Trace-lysed H Urine Nitrate Negative Urine Bilirubin Negative Urine Urobilinogen 0.2 Ur Leukocyte Esterase Moderate H Urine RBC 0 - 2 Urine WBC 2 - 5 Ur Epithelial Cells 1 - 3 Urine Other Trichomonas Urine HCG, Qual Salicylates Urine Opiates Screen Negative Urine Methadone Screen Negative Acetaminophen Ur Barbiturates Screen Negative Ur Phencyclidine Scrn Negative Ur Amphetamines Screen Negative U Benzodiazepines Scrn Negative U Oth Cocaine Metabols Negative U Cannabinoids Screen Negative Alcohol, Quantitative RPR 04/02/18 04/02/18 04/03/18 11:40 11:40 07:30 WBC RBC Hgb Hct MCV MCH MCHC RDW Plt Count MPV Gran % Lymph % (Auto) [place] % (Auto) Eos % (Auto) Baso % (Auto) Gran # Lymph # (Auto) [place] # (Auto) Eos # (Auto) Baso # (Auto) Sodium Potassium Chloride Carbon Dioxide Anion Gap BUN Creatinine Est GFR ( Amer) Est GFR (Non-Af Amer) Random Glucose Fasting Glucose Calcium Iron 67 TIBC 363 % Saturation 18 L Total Bilirubin AST ALT Alkaline Phosphatase Troponin I Total Protein Albumin Globulin Albumin/Globulin Ratio Triglycerides Cholesterol LDL Cholesterol Direct HDL Cholesterol Free T4 0.97 TSH 3rd Generation 1.14 Urine Color Urine Appearance Urine pH Ur Specific [place] Urine Protein Urine Glucose (UA) Urine Ketones Urine Blood Urine Nitrate Urine Bilirubin Urine Urobilinogen Ur Leukocyte Esterase Urine RBC Urine WBC Ur Epithelial Cells Urine Other Urine HCG, Qual Salicylates Urine Opiates Screen Urine Methadone Screen Acetaminophen Ur Barbiturates Screen Ur Phencyclidine Scrn Ur Amphetamines Screen U Benzodiazepines Scrn U Oth Cocaine Metabols U Cannabinoids Screen Alcohol, Quantitative RPR Nonreactive 04/05/18 04/05/18 04/05/18 09:20 09:20 14:21 WBC 11.2 H RBC 4.12 Hgb 11.6 L Hct 35.3 L MCV 85.7 MCH 28.2 MCHC 32.9 RDW 16.7 H Plt Count 356 MPV 8.9 Gran % 73.7 H Lymph % (Auto) 18.6 L [place] % (Auto) 6.4 H Eos % (Auto) 1.1 L Baso % (Auto) 0.2 Gran # 8.23 H Lymph # (Auto) 2.1 [place] # (Auto) 0.7 H Eos # (Auto) 0.1 Baso # (Auto) 0.02 Sodium 142 Potassium 4.0 Chloride 101 Carbon Dioxide 26 Anion Gap 18 BUN 10 Creatinine 0.6 L Est GFR ( Amer) > 60 Est GFR (Non-Af Amer) > 60 Random Glucose 144 H Fasting Glucose Calcium 9.6 Iron TIBC % Saturation Total Bilirubin 0.3 AST 15 ALT 28 Alkaline Phosphatase 68 Troponin I Total Protein 7.3 Albumin 4.4 Globulin 2.9 Albumin/Globulin Ratio 1.5 Triglycerides Cholesterol LDL Cholesterol Direct HDL Cholesterol Free T4 TSH 3rd Generation Urine Color Urine Appearance Urine pH Ur Specific [place] Urine Protein Urine Glucose (UA) Urine Ketones Urine Blood Urine Nitrate Urine Bilirubin Urine Urobilinogen Ur Leukocyte Esterase Urine RBC Urine WBC Ur Epithelial Cells Urine Other Urine HCG, Qual Negative Salicylates Urine Opiates Screen Urine Methadone Screen Acetaminophen Ur Barbiturates Screen Ur Phencyclidine Scrn Ur Amphetamines Screen U Benzodiazepines Scrn U Oth Cocaine Metabols U Cannabinoids Screen Alcohol, Quantitative RPR 04/05/18 04/05/18 15:58 22:50 WBC RBC Hgb Hct MCV MCH MCHC RDW Plt Count MPV Gran % Lymph % (Auto) [place] % (Auto) Eos % (Auto) Baso % (Auto) Gran # Lymph # (Auto) [place] # (Auto) Eos # (Auto) Baso # (Auto) Sodium Potassium Chloride Carbon Dioxide Anion Gap BUN Creatinine Est GFR ( Amer) Est GFR (Non-Af Amer) Random Glucose Fasting Glucose Calcium Iron TIBC % Saturation Total Bilirubin AST ALT Alkaline Phosphatase Troponin I < 0.01 Total Protein Albumin Globulin Albumin/Globulin Ratio Triglycerides Cholesterol LDL Cholesterol Direct HDL Cholesterol Free T4 TSH 3rd Generation Urine Color Urine Appearance Urine pH Ur Specific [place] Urine Protein Urine Glucose (UA) Urine Ketones Urine Blood Urine Nitrate Urine Bilirubin Urine Urobilinogen Ur Leukocyte Esterase Urine RBC Urine WBC Ur Epithelial Cells Urine Other Urine HCG, Qual Salicylates Urine Opiates Screen Urine Methadone Screen Acetaminophen Ur Barbiturates Screen Ur Phencyclidine Scrn Ur Amphetamines Screen U Benzodiazepines Scrn U Oth Cocaine Metabols U Cannabinoids Screen Alcohol, Quantitative < 10 RPR Consultations:: List each consultation separately and include: 1. Reason for request. 2. Findings. 3. Follow-up Consultations: Dr. Rosario on 04/05/18 Summary of Hospital Course include:: 1. Description of specific treatment plan utilized for patients during their course of treatmen. 2. Summarize the time- course for resolution of acute symptoms and/or regressed behaviors. 3. Describe issues identified and worked on during hospitalization. 4. Describe medication utilized. 5. Describe medical problems identified and treated. 6. Reassessment of suicide risk Summary of Hospital Course: Patient is a 37 yo female with a long history of schizophrenia, hx of noncompliance with meds who was brought in by her brother for treatment of disorganization, paranoid delusions, insomnia, and visual hallucinations. Patient has required 1:1 observation for disorganized thoughts and behaviors on the unit. On 04/03/18 patient induced vomiting and tried to stuff toilet paper in her mouth because of delusion that "some foreign balls are in my body. On patient was actively responding to internal stimuli and kept repeating that she did not kill anyone. She was heard by staff repeating "oh shut up, stop talking to me. Patient has shown minimal improvement in insight and organization on the unit. Patient put in a 48 hour letter. She was screened and accepted for involuntary commitment to [facility]. She continued to demonstrate periods of agitation, active hallucinations and delusions necessitating standing and prn medications. Patient was guarded, evasive, superficial and preoccupied around staff and other patients. She had difficulty being around other patients due to her paranoia and remained unpredictable at the time of her transfer to [facility] [place]. - Final Diagnosis (DSM 5) Condition upon Discharge: GUARDED Disposition: OTHER INSTITUTION Follow-up Treatment Plan: * NOTE: PATIENT HAS BEEN ACCEPTED FOR INVOLUNTARY COMMITMENT TO [facility] [place]. - Smoking Cessation Smoking Cessation Medication prescribed: No Reason for not providing: TRANSFERRED FOR INVOLUNTARY COMMITMENT TO [facility] [place] - Antipsychotic Medications Pt discharged on 2 or more routine antipsychotic medications: No
== END 2018-04-06 21:17 | DRG 885 ==
LOC: ED 21:59 → ERH 04-02 09:02 → PSYC 04-02 09:44
PROVIDERS: ADMIT Psychiatry & Neurology Psychiatry; ATTEND Psychiatry & Neurology Psychiatry
DX: F20.9 Schizophrenia, unspecified (principal); N39.0 Urinary tract infection, site not specified; F41.9 Anxiety disorder, unspecified; I10 Essential (primary) hypertension; K21.9 Gastro-esophageal reflux disease without esophagitis; Z87.440 Personal history of urinary (tract) infections; Z91.14 Patient's other noncompliance with medication regimen; A59.01 Trichomonal vulvovaginitis; K29.70 Gastritis, unspecified, without bleeding